=== PATIENT | male | born 1950 | race Caucasian/White ===

== ENCOUNTER → 2016-05-14 | Outpatient (CLI) | payer BC ==
[~2016-05-14] MED LIST: AMLO5TAB4 PO; ATRV10T PO; BONE HEALTH; DIGESTIVE ENZYME; Probiotic; SODI325T PO; [UNRECOGNIZED DRUG - REMARK]
--- OUTSIDE RECORDS SUMMARY | 2016-05-14 16:16 | XMS REPORT | Continuity of Care Document ---
Author Author [facility] Organization [facility] Address Unknown Phone Unavailable Allergies Active Description Code Type Severity Reaction Onset Reported/Identified Relationship to Patient Clinical Status Yes Penicillins [id number] Drug Allergy Unknown N/A 02/20/2013 Medications Problems Date Dx Coded Attending Type Code Diagnosis Diagnosed By 10/05/2014 Shailesh FULLER MD Ot 591 01/18/2015 MAKENNA COLLAZO, RACHEL S Ot D63.1 01/18/2015 MAKENNA COLLAZO, MED S Ot N18.4 01/21/2015 MAKENNA COLLAZO, MED S Ot D63.1 01/21/2015 MAKENNA COLLAZO, MED S Ot N18.4 01/21/2015 MAKENNA COLLAZO, MED S Ot D63.1 01/21/2015 MAKENNA COLLAZO, MED S Ot N18.4 01/23/2015 MAKENNA COLLAZO, MED S Ot D63.1 01/23/2015 MAKENNA COLLAZO, RACHEL S Ot N18.4 01/25/2015 MAKENNA COLLAZO, AHMED S Ot D63.1 01/25/2015 MAKENNA COLLAZO, AHMED S Ot N18.4 02/06/2015 MAKENNA COLLAZO, AHMED S Ot D63.1 02/06/2015 MAKENNA COLLAZO, AMRIK S Ot N18.4 03/07/2015 MAKENNA COLLAZO, AHRACHEL S Ot D63.1 03/07/2015 MAKENNA COLLAZO, AMRIK S Ot N18.4 04/16/2015 MAKENNA COLLAZO, AHMED S Ot D63.1 04/16/2015 MAKENNA COLLAZO, AHRACHEL S Ot N18.4 Procedures Results Encounters ACCT No. Visit Date/Time Discharge Status Pt. Type Provider Facility Loc./Unit Complaint [id number] 01/25/2015 15:28:00 2015 00:01:00 DIS Outpatient MAKENNA COLLAZO, AMRIK Hauser [facility] [id number] 09/17/2014 11:43:00 2014 23:59:59 CLS Outpatient Shailesh FULLER MD [facility] [id number] 02/20/2013 08:21:00 2012 13:35:00 DIS Outpatient [id number] 04/17/2015 00:11:00 PEN Preadmit MAKENNA COLLAZO, AMRIK Hauser [facility]
--- NOTE | 2016-05-14 16:49 | Diagnostic Imaging Report ---
Procedure: US carotid duplex, bilateral. Technique: Multiple real-time grayscale images were obtained over the carotid arteries in various projections, bilaterally. Additional duplex Doppler and color Doppler images were also obtained. Indication: Hypertension, carotid stenosis. Comparison: None. Discussion: Sonographic evaluation of the common and internal carotid arteries and bilateral vertebral arteries was performed with a linear transducer. Images were assessed for grayscale appearance, spectral and color Doppler blood flow. No significant atherosclerotic plaque identified within either carotid bifurcation. Normal flow velocities are present within the bilateral internal and external carotid arteries. Normal antegrade flow within the bilateral vertebral arteries. Normal ICA/CCA ratios measuring 1.2 on the right and 0.7 on the left. Impression: The bilateral carotid bifurcations are widely patent. Dictated by: Dictated on workstation # [id number]
== END ==
LOC: RAD 16:12
PROVIDERS: ATTEND Family Medicine
DX: I12.9 Hypertensive chronic kidney disease with stage 1 through stage 4 chronic kidney disease, or unspecified chronic kidney disease (principal); N18.4 Chronic kidney disease, stage 4 (severe)
CPT/HCPCS: 93880

== ENCOUNTER → 2016-05-15 | Outpatient (CLI) | payer BC ==
--- OUTSIDE RECORDS SUMMARY | 2016-05-15 18:19 | XMS REPORT | Continuity of Care Document ---
Author Author [facility] Organization [facility] Address Unknown Phone Unavailable Allergies Active Description Code Type Severity Reaction Onset Reported/Identified Relationship to Patient Clinical Status Yes Penicillins [id number] Drug Allergy Unknown N/A 02/20/2013 Medications Problems [...] AHMED S Ot N18.4 02/06/2015 MAKENNA COLLAZO, MED S Ot D63.1 02/06/2015 MAKENNA COLLAZO, AMRIK S Ot N18.4 03/07/2015 MAKENNA COLLAZO, AHRACHEL S Ot D63.1 03/07/2015 MAKENNA COLLAZO, AMRIK S Ot N18.4 04/16/2015 MAKENNA COLLAZO, AHMED S Ot D63.1 04/16/2015 MAKENNA COLLAZO, AHRACHEL S Ot N18.4 Procedures Results Encounters ACCT No. Visit Date/Time Discharge Status Pt. Type Provider Facility Loc./Unit Complaint [id number] 01/25/2015 15:28:00 2015 00:01:00 DIS Outpatient MAKENNA COLLAZO, AMRIK Hauser [facility] [id number] 09/17/2014 11:43:00 2014 23:59:59 CLS Outpatient Shailesh FULLER MD [facility] [id number] 02/20/2013 08:21:00 2012 13:35:00 DIS Outpatient [id number] 04/17/2015 00:11:00 PEN Preadmit MAKENNA COLLAZO, AMRIK Hauser [facility]
== END ==
LOC: RAD 18:15
PROVIDERS: ATTEND Family Medicine
DX: I12.9 Hypertensive chronic kidney disease with stage 1 through stage 4 chronic kidney disease, or unspecified chronic kidney disease (principal); N18.4 Chronic kidney disease, stage 4 (severe)

== ENCOUNTER 2016-05-16 01:34 | Observation (INO) | payer BC ==
[~2016-05-16] VITALS: Ht 177.8 cm; Wt 80.3 kg
[2016-05-16] VITALS (7 sets, daily range): BP systolic 127–146; BP diastolic 75–88
[~2016-05-16 01:34] MED LIST changes: -AMLO5TAB4 PO; -SODI325T PO
--- OUTSIDE RECORDS SUMMARY | 2016-05-16 01:40 | XMS REPORT | Continuity of Care Document ---
Author Author [facility] Organization [facility] Address Unknown Phone Unavailable Allergies Active Description Code Type Severity Reaction Onset Reported/Identified Relationship to Patient Clinical Status Yes Penicillins [id number] Drug Allergy Unknown N/A 02/20/2013 Medications Problems Date Dx Coded Attending Type Code Diagnosis Diagnosed By 10/05/2014 Shailesh FULLER MD Ot 591 01/18/2015 MAKENNA COLLAZO, RACHEL S Ot D63.1 01/18/2015 MAKENNA COLLAZO, MED S Ot N18.4 01/21/2015 MAKENNA COLLAZO, MED S Ot D63.1 01/21/2015 MAKENNA COLLAZO, MED S Ot N18.4 01/21/2015 MAKENNA COLLAZO, MED S Ot D63.1 01/21/2015 MAKNENA COLLAZO, MED S Ot N18.4 01/23/2015 MAKENNA COLLAZO, MED S Ot D63.1 01/23/2015 MAKENNA COLLAZO, RACHEL S Ot N18.4 01/25/2015 MAKENNA COLLAZO, AHMED S Ot D63.1 01/25/2015 MAKENNA COLLAZO, AHMED S Ot N18.4 02/06/2015 MAKENNA COLLAZO, AHMED S Ot D63.1 02/06/2015 MAKENNA COLLAZO, RACHEL S Ot N18.4 03/07/2015 MAKENNA COLLAZO, AHRACHEL S Ot D63.1 03/07/2015 MAKENNA COLLAZO, AMRIK S Ot N18.4 04/16/2015 MAKENNA COLLAZO, AHMED S Ot D63.1 04/16/2015 MAKENNA COLLAZO, AHRACHEL S Ot N18.4 Procedures Results Encounters ACCT No. Visit Date/Time Discharge Status Pt. Type Provider Facility Loc./Unit Complaint [id number] 01/25/2015 15:28:00 2015 00:01:00 DIS Outpatient MAKENNA COLLAZO, AMRIK Hauser [facility] [id number] 09/17/2014 11:43:00 2014 23:59:59 CLS Outpatient Shailesh FULLER MD [facility] [id number] 02/20/2013 08:21:00 2012 13:35:00 DIS Outpatient [id number] 04/17/2015 00:11:00 PEN Preadmit MAKENNA COLLAZO, AMRIK Hauser [facility]
[2016-05-16] MEDS ORDERED: ASPIRIN 81 MG CHEW (CHILDREN'S ASA) PO ONE (02:00)
[2016-05-16 02:03] LABS: BASOPHILS # (AUTO) 0.1 10^3/uL (0.0-0.1); BASOPHILS % (AUTO) 1 % (0-10); EOSINOPHILS # (AUTO) 0.2 10^3/uL (0.0-0.3); EOSINOPHILS % (AUTO) 3 % (0-10); LYMPHOCYTES # (AUTO) 1.8 X 10^3 (1.0-4.0); LYMPHOCYTES % (AUTO) 25 % (12-44); MEAN CORPUSCULAR HEMOGLOBIN 31 PG (25-34); MEAN CORPUSCULAR HGB CONC 35 G/DL (32-36); MEAN CORPUSCULAR VOLUME 89 FL (80-99); MEAN PLATELET VOLUME 11.2 FL (7.4-10.4); MONOCYTES # (AUTO) 0.7 X 10^3 (0.0-1.0); MONOCYTES % (AUTO) 10 % (0-12); NEUTROPHILS # (AUTO) 4.6 X 10^3 (1.8-7.8); NEUTROPHILS % (AUTO) 62 % (42-75); PLATELET COUNT 214 10^3/uL (130-400); RED BLOOD COUNT 4.78 10^6/uL (4.35-5.85); RED CELL DISTRIBUTION WIDTH 12.4 % (10.0-14.5); WHITE BLOOD COUNT 7.4 10^3/uL (4.3-11.0)
[2016-05-16 02:06] LABS: INR 0.9 (0.8-1.4); PROTHROMBIN TIME PATIENT 12.2 SEC (12.2-14.7)
--- NOTE | 2016-05-16 02:10 | ED Chest Pain ---
General Chief Complaint: Chest Pain Stated Complaint: CP Nursing Triage Note: PT REPORTS L ARM TINGLING SINCE ABOUT 1230 THIS AM THAT WOKE HIM FROM HIS SLEEP. HE REPORTS THAT HE BECAME ANXIOUS AND HAD DIAPHORESIS. HE DENIES ANY N/V. Nursing Sepsis Screen: No Definite Risk Source: patient Exam Limitations: no limitations History of Present Illness Time seen by provider: 01:39 Initial Comments Here with complaint of left-sided chest wall/shoulder pain and left arm tingling. This woke him up at about 1230. This was associated with sweating and not feeling well. He is concerned about heart attack. Does have history of hypertension and chronic kidney disease. Denies nausea or vomiting. Timing/Duration: 1 hour Severity/Quality: moderate Location: shoulder Radiation: arms Activities at Onset: rest Prior CP/Workup: cardiac cath Modifying Factors: improves with rest ASA po FILM TESTS CHECKER: No NTG SL FILM TESTS CHECKER: No Associated Symptoms: No abdominal pain, No back pain, diaphoresis nausea/ vomitingNo shortness of breath, weakness Allergies and Home Medications Allergies Coded Allergies: Penicillins (Verified Adverse Reaction, Unknown, 02/20/13) Home Medications (Reported) (Reported) (Reported) (Reported) Atorvastatin Calcium 10 Mg Tablet 60Days 1 EACH PO DAILY Prescribed by: GRACE SWAN on 02/20/13 1052 Review of Systems Constitutional: see HPINo chills, No fever EENTM: No Symptoms Reported Respiratory: No Symptoms Reported Cardiovascular: See HPI Chest PainDenies Irregular Heart Rate Gastrointestinal: See HPI NauseaDenies Vomiting Genitourinary: No Symptoms Reported Musculoskeletal: see HPI joint pain muscle pain Skin: no symptoms reported Psychiatric/Neurological: No Symptoms Reported All Other Systems Reviewed Negative Unless Noted: Yes Past Yvvczmy-Dnljrs-Bzztgl Hx Patient Social History Alcohol Use: Denies Use Recreational Drug Use: No Smoking Status: Never a Smoker 2nd Hand Smoke Exposure: No Recent Foreign Travel: No Contact w/Someone Who Travel: No Recent Infectious Disease Expo: No Recent Hopitalizations: No Immunizations Up To Date Date of Influenza Vaccine: Jan 09, 2015 Surgeries HX Surgeries: Yes (HEART CATH) Surgeries: Tonsillectomy, Transurethral Resection Respiratory Hx Respiratory Disorders: No Cardiovascular Hx Cardiac Disorders: Yes Cardiac Disorders: Hypertension Neurological Hx Neurological Disorders: No Reproductive System Hx Reproductive Disorders: No Genitourinary Hx Genitourinary Disorders: Yes Genitourinary Disorders: Benign Prostatic Hyperpl, Renal Failure Gastrointestinal Hx Gastrointestinal Disorders: No Musculoskeletal Hx Musculoskeletal Disorders: No Endocrine Hx Endocrine Disorders: No HEENT HX ENT Disorders: No Cancer Hx Cancer: No Psychosocial Hx Psychiatric Problems: No Integumentary HX Skin/Integumentary Disorder: No Blood Transfusions Hx Blood Disorders: No Reviewed Nursing Assessment Reviewed/Agree w Nursing PMH: Yes Family Medical History Significant Family History: No Pertinent Family Hx Physical Exam Vital Signs Vital Sign - Last 12Hours Capillary Refill : Less Than 3 Seconds General Appearance: No Apparent Distress WD/WN HEENT: PERRL/EOMI Pharynx Normal Neck: Non Tender Supple Respiratory: Lungs Clear Normal Breath Sounds Cardiovascular: Regular Rate, Rhythm No Murmur Gastrointestinal: Non Tender Soft Extremity: Normal Capillary Refill Normal Inspection Normal Range of Motion Non Tender No Calf Tenderness Neurologic/Psychiatric: Alert Oriented x3 Skin: Normal Color Warm/Dry Progress/Results/Core Measures Results/Orders Lab Results Laboratory Tests Test 05/16/16 01:38 Range/Units Activated Partial Thromboplast Time 28 24-35 SEC Alanine Aminotransferase (ALT/SGPT) 35 0-55 U/L Albumin 4.6 H 3.2-4.5 G/DL Alkaline Phosphatase 86 40-136 U/L Anion Gap 15 H 5-14 MMOL/L Aspartate Amino Transf (AST/SGOT) 26 5-34 U/L BUN/Creatinine Ratio 13 Basophils # (Auto) 0.1 0.0-0.1 10^3/uL Basophils (%) (Auto) 1 0-10 % Blood Urea Nitrogen 37 H 7-18 MG/DL Calcium Level 9.5 8.5-10.1 MG/DL Carbon Dioxide Level 17 L 21-32 MMOL/L Chloride Level 106 98-107 MMOL/L Creatinine 2.75 H 0.60-1.30 MG/DL D-Dimer 0.36 0.00-0.49 UG/ML Eosinophils # (Auto) 0.2 0.0-0.3 10^3/uL Eosinophils (%) (Auto) 3 0-10 % Estimat Glomerular Filtration Rate 23 Glucose Level 103 70-105 MG/DL Hematocrit 43 40-54 % Hemoglobin 15.0 13.3-17.7 G/DL INR Comment 0.9 0.8-1.4 Lymphocytes # (Auto) 1.8 1.0-4.0 X 10^3 Lymphocytes (%) (Auto) 25 12-44 % Magnesium Level 2.6 H 1.8-2.4 MG/DL Mean Corpuscular Hemoglobin 31 25-34 PG Mean Corpuscular Hemoglobin Concent 35 32-36 G/DL Mean Corpuscular Volume 89 80-99 FL Mean Platelet Volume 11.2 H 7.4-10.4 FL Monocytes # (Auto) 0.7 0.0-1.0 X 10^3 Monocytes (%) (Auto) 10 0-12 % Myoglobin 115.8 H 10.0-92.0 NG/ML Neutrophils # (Auto) 4.6 1.8-7.8 X 10^3 Neutrophils (%) (Auto) 62 42-75 % Platelet Count 214 130-400 10^3/uL Potassium Level 4.0 3.6-5.0 MMOL/L Prothrombin Time 12.2 12.2-14.7 SEC Red Blood Count 4.78 4.35-5.85 10^6/uL Red Cell Distribution Width 12.4 10.0-14.5 % Sodium Level 138 135-145 MMOL/L Total Bilirubin 0.5 0.1-1.0 MG/DL Total Protein 7.3 6.4-8.2 G/DL Troponin I < 0.30 <0.30 NG/ML White Blood Count 7.4 4.3-11.0 10^3/uL My Orders Orders-EDGARD DE SOUZA MD Cbc With Automated Diff (05/16/16 01:51) Magnesium (05/16/16 01:51) Chest 1 View, Ap/Pa Only (05/16/16 01:51) Ekg Tracing (05/16/16 01:51) Cardiac Profile 1 (05/16/16 01:51) Comprehensive Metabolic Panel (05/16/16 01:51) Myoglobin Serum (05/16/16 01:51) Protime With Inr (05/16/16 01:51) Partial Thromboplastin Time (05/16/16 01:51) O2 (05/16/16 01:51) Monitor-Rhythm Ecg Trace Only (05/16/16 01:51) Lipid Panel (05/17/16 06:00) Aspirin Chewable Tablet (Baby Aspirin Ch (05/16/16 02:00) Saline Lock/Iv-Start (05/16/16 01:51) Fibrin Degradation Products (05/16/16 01:51) Medications Given in ED Current Medications Medications Dose Ordered Sig/Caroline Route Start Time Stop Time Status Last Admin Dose Admin Aspirin 324 mg ONCE ONCE PO 05/16/16 02:00 05/16/16 02:01 DC 05/16/16 02:00 324 MG Vital Signs/I&O Vital Sign - Last 12Hours 05/16/16 05/16/16 01:35 01:35 Temp 97.7 Pulse 76 Resp 14 B/P 127/87 Pulse Ox 99 O2 Delivery Room Air Room Air Blood Pressure Mean: 100 Progress Note : Progress Note Seen and evaluated. IV, labs, EKG and chest x-ray ordered. ASA 324 mg by mouth ordered. Monitor patient. 0239: Discussed the case with Dr. Evans related to elevated myoglobin. Patient has negative heart catheter in 2012 but has kidney failure. Patient has mild elevation in myoglobin which makes it difficult to discharge patient home without further evaluation. Dr. Evans agrees and accepts patient for consultation. Discussed case with Dr. Bridges who agrees with admission and accepts patient in observation status. Admit to cardiac step down. Patient and family agree with plan. Patient currently pain- free. ECG Initial ECG Impression Date: May 16, 2016 Initial ECG Impression Time: 01:44 Initial ECG Rate: 67 Initial ECG Rhythm: Normal Sinus Comment Sinus rhythm with left ventricular hypertrophy. Normal axis. No evidence of ST elevation OK. Comparison well but increasing LVH from previous of 02/20/13. No evidence of ST elevation OK. Interpreted by me. Departure Communication Time/Spoke to Admitting Phy: 03:05 Time/Spoke to Consulting Physi: 02:39 Impression Impression: Primary Impression: Chest pain Qualified Code: R07.1 - Chest pain on breathing Disposition: ADMITTED INPATIENT Condition: Stable Decision to Admit Reason: Admit from ER (General) Decision to Admit/Date: May 16, 2016 Time/Decision to Admit Time: 03:05 Departure-Patient Inst. Referrals: RENETTA TERESA MD (PCP/Family) Primary Care Physician EDGARD DE SOUZA MD May 16, 2016 02:10
[2016-05-16 02:20] LABS: ALANINE AMINOTRANSFERASE 35 U/L (0-55); ALBUMIN 4.6 G/DL (3.2-4.5); ANION GAP 15 MMOL/L (5-14); ASPARTATE AMINO TRANSFERASE 26 U/L (5-34); BILIRUBIN,TOTAL 0.5 MG/DL (0.1-1.0); BLOOD UREA NITROGEN 37 MG/DL (7-18); BUN/CREATININE RATIO 13; CALCIUM 9.5 MG/DL (8.5-10.1); CARBON DIOXIDE 17 MMOL/L (21-32); CHLORIDE 106 MMOL/L (98-107); CREATININE SERUM 2.75 MG/DL (0.60-1.30); GFR ESTIMATED 23; GLUCOSE 103 MG/DL (70-105); MAGNESIUM 2.6 MG/DL (1.8-2.4); SODIUM 138 MMOL/L (135-145); TOTAL PROTEIN 7.3 G/DL (6.4-8.2)
[2016-05-16 02:27] LABS: MYOGLOBIN SERUM 115.8 NG/ML (10.0-92.0)
[2016-05-16] MEDS ORDERED: NS IV 1000 ML 1,000 ML ONE (04:29)
[2016-05-16] MEDS ORDERED: AMLO5TAB4 PO (06:28)
[2016-05-16] MEDS ORDERED: SODI325T PO (06:28)
[2016-05-16] MEDS ORDERED: FLU TRIvalent (5 YOA+) 2016-17 (AFLURIA) 0.5 ML IM ONE (07:15)
--- NOTE | 2016-05-16 07:34 | Diagnostic Imaging Report ---
INDICATION: Chest pain EXAMINATION: Chest 05/16/2016 Comparison made to 02/20/2013 FINDINGS: Heart is enlarged. The pulmonary vasculature is unremarkable. Lungs and pleural spaces clear. IMPRESSION: 1. Mild cardiomegaly, otherwise negative chest. Dictated by: Dictated on workstation # [id number]
[2016-05-16 08:17] LABS: MYOGLOBIN SERUM 487.7 NG/ML (10.0-92.0)
--- NOTE | 2016-05-16 10:49 | Short Stay Summary-Hospitalist ---
HPI History of Present Illness: HPI/Chief Complaint 65yoCM with PMH of HTN and CKD who presented to the ED with CC of left hand numbness and tingling. This has been present for a while and is in currently undergoing a workup by his PCP for this. He reports this has happened many times and improves when he has friends pray for him but was unable to get a hold of his friends last night and became very anxious over the symptoms prompting him to seek evaluation in the ED. He was found to have an elevated myoglobin and after discussion with Dr. Evans was admitted for observation. He denies any chest pain, SOB, HOUSER, ENMANUEL, nausea. His only symptom is the mild persistent tingling in his 4th and 5th digit of his left hand. Source: patient Exam Limitations: no limitations Date Seen 05/16/16 Attending Physician Josy Bridges Katelyn MD PCP Yudith Vásquez MD Referring Physician Date of Admission May 16, 2016 at 03:10 Home Medications & Allergies Home Medications Reviewed patient Home Medication Reconciliation Form Allergies Coded Allergies: Penicillins (Verified Adverse Reaction, Unknown, 02/20/13) Past Iryookq-Zeesyy-Pdxjou Hx Patient Social History Alcohol Use: Denies Use Recreational Drug Use: No Smoking Status: Never a Smoker 2nd Hand Smoke Exposure: No Physical Abuse Screen: No Sexual Abuse: No Recent Foreign Travel: No Contact w/other who traveled: No Recent Hopitalizations: No Recent Infectious Disease Expo: No Immunizations Up To Date Date of Influenza Vaccine: Jan 09, 2015 Seasonal Allergies Seasonal Allergies: No Surgeries HX Surgeries: Yes (HEART CATH) Surgeries: Tonsillectomy, Transurethral Resection Respiratory Hx Respiratory Disorders: No Cardiovascular Hx Cardiovascular Disorders: Yes Cardiac Disorders: Hypertension Neurological Hx Neurological Disorders: No Reproductive System Hx Reproductive Disorders: No Genitourinary Hx Genitourinary Disorders: Yes Genitourinary Disorders: Benign Prostatic Hyperpl, Renal Failure Gastrointestinal Hx Gastrointestinal Disorders: No Musculoskeletal Hx Musculoskeletal Disorders: No Endocrine Hx Endocrine Disorders: No HEENT HX ENT Disorders: No Cancer Hx Cancer: No Psychosocial Hx Psychiatric Problems: No Integumentary HX Skin/Integumentary Disorder: No Blood Transfusions Hx Blood Disorders: No Reviewed Nursing Assessment Reviewed/Agree w Nursing PMH: Yes Family Medical History Significant Family History: No Pertinent Family Hx Family Hx: Cardiovascular disease 19 MOTHER FH: CVA (cerebrovascular accident) 19 FATHER FH: cancer 19 MOTHER Hypertension 19 FATHER Prostate cancer 19 MOTHER Review of Systems Constitutional: no symptoms reported EENTM: no symptoms reported Respiratory: no symptoms reported Cardiovascular: no symptoms reported Gastrointestinal: no symptoms reported Genitourinary: no symptoms reported Musculoskeletal: no symptoms reported Skin: no symptoms reported Psychiatric/Neurological: Numbness (left hand) Paresthesia (left hand) Physical Exam Physical Exam Vital Signs Vital Sign - Last 12Hours Capillary Refill : Less Than 3 Seconds General Appearance: No Apparent Distress WD/WN Eyes: Bilateral Eye EOMI, Bilateral Eye PERRL HEENT: PERRL/EOMI Other (HEAD: NC/AT) Neck: Normal Inspection Respiratory: Chest Non Tender Lungs Clear Normal Breath Sounds No Accessory Muscle Use No Respiratory Distress Cardiovascular: Regular Rate, Rhythm No Edema No Murmur Normal Peripheral Pulses Gastrointestinal: Normal Bowel Sounds No Organomegaly Non Tender Soft Rectal: Deferred Extremity: Normal Capillary Refill Normal Inspection Non Tender No Calf Tenderness Neurologic/Psychiatric: Alert Oriented x3 No Motor/Sensory Deficits Normal Mood/Affect Results Results/Procedures Lab Laboratory Tests 05/16/16 01:38 Short Stay Diagnosis Discharge Diagnosis-Short Stay Admission Diagnosis Elevated myoglobin, CKD, HTN Final Discharge Diagnosis Elevated myoglobin, CKD, HTN Conclusion Plan 65yoCM with PMH of HTN and CKD who presented with left arm paresthesias and was found to have an elevated myoglobin admitted for ACS rule out. He was observed overnight and did well, paresthesias improving. Cardiology consulted, appreciate recs. Once evaluated by cardiology, will plan to DC home if no further inpatient workup planned. Of note has appt for outpatient MRI today to evaluate for possible TIAs that are causing paresthesias. Diagnosis/Problems Diagnosis/Problems (1) Elevated myoglobin level Status: Acute (2) Essential (primary) hypertension Status: Chronic (3) CKD (chronic kidney disease) stage 4, GFR 15-29 ml/min Status: Chronic (4) Left hand paresthesia Status: Chronic Clinical Quality Measures AMI/AHF: ASA po Prior to arrival: No DVT/VTE Risk/Contraindication: Risk Factor Score Per Nursin RFS Level Per Nursing on Admit: 2=Moderate COLETTE CASTANEDA MD May 16, 2016 10:49
--- NOTE | 2016-05-16 11:00 | Consultation-Cardiology ---
HPI-Cardiology Cardiology Consultation: Date of Consultation 05/16/16 Date of Admission Attending Physician Josy Bridges DO Admitting Physician Yudith Vásquez MD Consulting Physician Braden EVANS MD HPI: Chief Complaint: left shoulder discomfort, left arm discomfort, dizziness. this is a 65-year-old gentleman with new onset hypertension and premature family history of coronary artery disease. Last Wednesday he had symptoms of dizziness. Yesterday he was admitted because of left shoulder discomfort as well as left upper extremity discomfort and numbness. He denies any significant chest pain or shortness of breath. He's had this episodes in the past for a brief period of time. However yesterday these episodes were prolonged therefore he decided to come to the emergency department. Review of Systems-Cardiology Review of Systems Constitutional: No As described under HPI, No no symptoms reported, No chills, No fever, No lightheadedness, No malaise, No tiredness, No weight loss, No weight gain, No other Eyes: No As described under HPI, No no symptoms reported, No blindness, No blurred vision, No contact lenses, No drainage, No decreased acuity, No foreign body sensation, No glasses, No inflammation, No pain, No photophobia, No previous injury, No shadows, No tunnel vision, No other, No vision change Ears/Nose/Throat: No As described under HPI, No no symptoms reported, No chronic hearing loss, No epistaxis, No ear discharge, No ear pain, No loose teeth, No mouth pain, No mouth swelling, No nasal drainage, No nose pain, No recent hearing loss, No throat pain, No throat swelling, No ulcerations, No other Respiratory: No no symptoms reported, No As described under HPI, No cough, No orthopnea, No shortness of breath, No SOB with excertion, No SOB at rest, No stridor, No wheezing, No other Cardiovascular: No no symptoms reported, No As described under HPI, No chest pain, No edema, No irregular heart rate, No lightheadedness, No palpitations, No syncope, No other Gastrointestinal: No no symptoms reported, No As described under HPI, No abdomen distended, No abdominal pain, No blood streaked bowels, No constipation , No diarrhea, No difficulty swallowing, No nausea, No poor appetite, No poor fluid intake, No rectal bleeding, No vomiting, No other, No nausea/vomiting/ diarrhea, No stool coloration changes Genitourinary: No no symptoms reported, No As described under HPI, No burning, No dysuria, No discharge, No frequency, No flank pain, No hematuria, No incontinence, No pain, No urgency, No other, No urine frequency changes, No urine coloration changes Musculoskeletal: As describe under HPI joint pain Skin: No no symptoms reported, No As described under HPI, No change in color, No change in hair/nails, No dryness, No lesions, No lumps, No rash, No other, No skin related problems, No ulcerations, No rash on exposed areas, No ulcerations on exposed areas Psychiatric/Neurological: numbness Hematologic: No no symptoms reported, No As described under HPI, No anemia, No blood clots, No easy bleeding, No easy bruising, No swollen glands, No other, No bleeding abnormalities All Other Systems Reviewed Negative Unless Noted: Yes VET-Stleea-Tfsiyk Hx Patient Social History Alcohol Use: Denies Use Recreational Drug Use: No Smoking Status: Never a Smoker 2nd Hand Smoke Exposure: No Recent Foreign Travel: No Recent Infectious Disease Expo: No Hospitalization with Isolation: Denies Physical Abuse Screen: No Sexual Abuse: No Immunizations Up To Date Date of Influenza Vaccine: Jan 09, 2015 Past Medical History PMH As described under Assessment. Family Medical History Family History: Cardiovascular disease 19 MOTHER FH: CVA (cerebrovascular accident) 19 FATHER FH: cancer 19 MOTHER Hypertension 19 FATHER Prostate cancer 19 MOTHER Allergies and Home Medications Allergies Coded Allergies: Penicillins (Verified Adverse Reaction, Unknown, 02/20/13) Home Medications Amlodipine Besylate 5 Mg Tablet 5 MG PO DAILY (Reported) Sodium Bicarbonate 325 Mg Tablet 325 MG PO BID (Reported) Physical Exam-Cardiology Physical Exam Vital Signs/I&O Vital Sign - Last 12Hours 05/16/16 05/16/16 05/16/16 05/16/16 01:35 01:35 04:06 04:30 Temp 97.7 97.7 96.1 Pulse 76 62 66 Resp 14 14 18 B/P 127/87 127/82 Pulse Ox 99 95 98 O2 Delivery Room Air Room Air Room Air 05/16/16 05/16/16 05/16/16 05/16/16 04:50 05:34 06:32 07:00 Temp 97.1 Pulse 64 75 62 65 Resp 18 18 18 B/P 133/81 146/88 131/75 Pulse Ox 100 98 97 O2 Delivery Room Air Room Air Room Air 05/16/16 08:00 Temp 98.0 Pulse 66 Resp 20 B/P 141/82 Pulse Ox 96 O2 Delivery Room Air Capillary Refill : Less Than 3 Seconds Data Review Labs Laboratory Tests 05/16/16 01:38: Activated Partial Thromboplast Time 28, Alanine Aminotransferase (ALT/SGPT) 35, Albumin 4.6H, Alkaline Phosphatase 86, Anion Gap 15H, Aspartate Amino Transf ( AST/SGOT) 26, BUN/Creatinine Ratio 13, Basophils # (Auto) 0.1, Basophils (%) ( Auto) 1, Blood Urea Nitrogen 37H, Calcium Level 9.5, Carbon Dioxide Level 17L, Chloride Level 106, Creatinine 2.75H, D-Dimer 0.36, Eosinophils # (Auto) 0.2, Eosinophils (%) (Auto) 3, Estimat Glomerular Filtration Rate 23, Glucose Level 103, Hematocrit 43, Hemoglobin 15.0, INR Comment 0.9, Lymphocytes # (Auto) 1.8, Lymphocytes (%) (Auto) 25, Magnesium Level 2.6H, Mean Corpuscular Hemoglobin 31 , Mean Corpuscular Hemoglobin Concent 35, Mean Corpuscular Volume 89, Mean Platelet Volume 11.2H, Monocytes # (Auto) 0.7, Monocytes (%) (Auto) 10, Myoglobin 115.8H, Neutrophils # (Auto) 4.6, Neutrophils (%) (Auto) 62, Platelet Count 214, Potassium Level 4.0, Prothrombin Time 12.2, Red Blood Count 4.78, Red Cell Distribution Width 12.4, Sodium Level 138, Total Bilirubin 0.5, Total Protein 7.3, Troponin I < 0.30, White Blood Count 7.4 05/16/16 07:50: Myoglobin 487.7H, Troponin I < 0.30 ECG Impression ECG Initial ECG Rhythm: Normal Sinus Comment T-wave inversions noted in the anterior precordial leads and the lateral leads. However I reviewed his previous EKG in the chart, which has the same findings. A/P-Cardiology Assessment/Admission Diagnosis left shoulder pain, left upper extremity discomfort, dizziness Plan this is a 65-year-old gentleman with history of hypertension and premature coronary artery disease in the family. He presents with atypical symptoms of left shoulder and upper extremity discomfort. He also complained of some dizziness in the last one week for which he is having an MRI done today. His EKG shows sinus rhythm with T-wave inversions which are unchanged from his previous EKG in the system. Serial troponins are negative. I have spoken at length with the patient and the family. I have educated them that this is not an acute coronary syndrome however obstructive coronary artery disease is still possible. therefore, I recommend an outpatient echocardiogram and pharmacological nuclear stress test early next week. In the meantime he will start low-dose aspirin. If he has recurrent symptoms he will seek immediate medical attention. Severe renal dysfunction noted. Needs to continue follow nephrology. Etiology of chronic kidney disease unclear. Thank you for your consultation. Please call me if you have any questions. Gay Evans MD, FACP, FACC, FSCAI, FHRS, CCDS Interventional Cardiology Cardiac Electrophysiology Vascular Medicine and Endovascular Interventions Clinical Quality Measures AMI/AHF: ASA po Prior to arrival: No DVT/VTE Risk/Contraindication: Risk Factor Score Per Nursin RFS Level Per Nursing on Admit: 2=Moderate Braden EVANS MD May 16, 2016 11:00 am
--- NOTE | 2016-05-16 11:05 | Discharge Instructions ---
Discharge Instructions Discharge Medications New, Converted or Re-Newed RX: Other Patient Instructions Patient Instructions Please follow up with you PCP for further evaluation of your persistent left hand numbness and tingling. Return to The Hospital For: chest pain, shortness of breath, dyspnea on exertion Activity & Diet Discharge Diet: Low Sodium Diet Activity as Tolerated: Yes COLETTE CASTANEDA MD May 16, 2016 11:05
== END 2016-05-16 11:06 | disposition home or self-care (01) ==
LOC: EDUNIT# 01:34 → ER 01:37 → ICU 03:10 → UNDOADMOB 03:10 → ICU 04:20 → UNDODISOB 13:45
PROVIDERS: ADMIT Internal Medicine; ATTEND Internal Medicine
DX: R07.9 Chest pain, unspecified (principal); I12.9 Hypertensive chronic kidney disease with stage 1 through stage 4 chronic kidney disease, or unspecified chronic kidney disease; N18.4 Chronic kidney disease, stage 4 (severe); R89.7 Abnormal histological findings in specimens from other organs, systems and tissues; R20.2 Paresthesia of skin; Z82.49 Family history of ischemic heart disease and other diseases of the circulatory system
CPT/HCPCS: 36415; 71010; 80053; 83735; 83874; 84484; 85025; 85379; 85610; 85730; 93005; 93041; G0378

== ENCOUNTER → 2016-05-16 | Outpatient (CLI) | payer BC ==
--- OUTSIDE RECORDS SUMMARY | 2016-05-16 15:24 | XMS REPORT | Continuity of Care Document ---
Author Author [facility] Organization [facility] Address Unknown Phone Unavailable Allergies Active Description Code Type Severity Reaction Onset Reported/Identified Relationship to Patient Clinical Status Yes Penicillins [id number] Drug Allergy Unknown N/A 02/20/2013 Medications Problems Date Dx Coded Attending Type Code Diagnosis Diagnosed By 10/05/2014 Shailesh FULLER MD Ot 591 01/18/2015 MAKENNA COLLAZO, RACHEL S Ot D63.1 01/18/2015 MAKENNA COLLAZO, MED S Ot N18.4 01/21/2015 MAKENNA COLLAZO, MED S Ot D63.1 01/21/2015 MAKENNA CLOLAZO, MED S Ot N18.4 01/21/2015 MAKENNA COLLAZO, [...] Status Pt. Type Provider Facility Loc./Unit Complaint [id number] 01/25/2015 15:28:00 2015 00:01:00 DIS Outpatient MAKENNA COLLAZO, AMRIK Hauser [facility] [id number] 09/17/2014 11:43:00 2014 23:59:59 CLS Outpatient Shailesh FULLER MD [facility] [id number] 02/20/2013 08:21:00 2012 13:35:00 DIS Outpatient [id number] 04/17/2015 00:11:00 PEN Preadmit MAKENNA COLLAZO, AMRIK Hauser [facility]
--- NOTE | 2016-05-16 17:53 | Diagnostic Imaging Report ---
PROCEDURE: MR imaging of the brain without contrast. TECHNIQUE: Multiplanar, multisequence MR imaging of the brain was performed without contrast. INDICATION: Recently started on new blood pressure medication two days ago. Tingling in the fourth and fifth digits of the left hand for a week. Dizziness and left arm weakness. EXAMINATION: MRI of brain without contrast 05/16/2016. FINDINGS: No definite areas of restricted effusion appreciated with no evidence for acute hemorrhage or infarct appreciated. Multiple areas of rounded hyperintensity on FLAIR imaging throughout the deep white matter and periventricular suspicion visualized. These findings could be due to chronic small vessel ischemic disease. A demyelinating process felt to be less likely but clinical exclusion of such a process is recommended. The midline structures demonstrate normal appearance with no significant atrophy of the midline structures visualized. Minimal atrophy towards the vertex bilaterally, age-appropriate. There is no hydrocephalus. There is no mass, mass effect or midline shift. The sinuses demonstrate mucosal thickening bilaterally with no air-fluid levels identified. Partial opacification of the mastoid air cells, right greater than left is noted, age-indeterminate. IMPRESSION: 1. No evidence for acute intracranial hemorrhage or process. Chronic findings as above with hyperintensities on FLAIR imaging; however, a demyelinating process could cause a similar appearance and clinical exclusion of such a process is recommended. 2. Chronic changes within the visualized sinuses and other incidental findings as discussed above. Dictated by: Dictated on workstation # [id number]
== END ==
LOC: RAD 15:21
PROVIDERS: ATTEND Internal Medicine
DX: I12.9 Hypertensive chronic kidney disease with stage 1 through stage 4 chronic kidney disease, or unspecified chronic kidney disease (principal); N18.4 Chronic kidney disease, stage 4 (severe)
CPT/HCPCS: 70551

== ENCOUNTER → 2016-05-22 | Outpatient (CLI) | payer BC ==
[~2016-05-22] MED LIST changes: +AMLO5TAB4 PO; +CATHETER FLUSH 10 ML SYR IV PRN; +REGADENOSON 0.4 MG/5 ML SYR (LEXISCAN) IV ONE; +SODI325T PO
--- OUTSIDE RECORDS SUMMARY | 2016-05-22 09:38 | XMS REPORT | Continuity of Care Document ---
Author Author [facility] Organization [facility] Address Unknown Phone Unavailable Allergies Active Description Code Type Severity Reaction Onset Reported/Identified Relationship to Patient Clinical Status Yes Penicillins [id number] Drug Allergy Unknown N/A 02/20/2013 Medications Problems Date Dx Coded Attending Type Code Diagnosis Diagnosed By 02/20/2013 OZIEL HORN MD Ot 414.01 CORONARY ATHEROSCLEROSIS OF [place] CORON 02/20/2013 OZIEL HORN MD Ot 786.50 CHEST PAIN NOS 02/20/2013 OZIEL HORN MD Ot V17.3 FAM HX-ISCHEM HEART DIS 10/05/2014 JONNY COLLAZO, Shailesh SEXTON Ot 591 01/18/2015 MAKENNA COLLAZO, RACHEL S Ot D63.1 01/18/2015 MAKENNA COLLAZO, RACHEL S Ot N18.4 01/21/2015 MAKENNA COLLAZO, AMRIK S Ot D63.1 01/21/2015 MAKENNA COLLAZO, AMRIK S Ot N18.4 01/21/2015 MAKENNA COLLAZO, MED S Ot D63.1 01/21/2015 MAKENNA COLLAZO, RACHEL S Ot N18.4 01/23/2015 MAKENNA COLLAZO, MED S Ot D63.1 01/23/2015 MAKENNA COLLAZO, RACHEL S Ot N18.4 01/25/2015 MAKENNA COLLAZO, MED S Ot D63.1 01/25/2015 MAKENNA COLLAZO, AMRIK S Ot N18.4 02/06/2015 MAKENNA COLLAZO, RACHEL S Ot D63.1 02/06/2015 MAKENNA COLLAZO, RACHEL S Ot N18.4 03/07/2015 MAKENNA COLLAZO, MED S Ot D63.1 03/07/2015 MAKENNA COLLAZO, RACHEL S Ot N18.4 04/16/2015 MAKENNA COLLAZO, AMRIK S Ot D63.1 ANEMIA IN CHRONIC KIDNEY DISEASE 04/16/2015 MAKENNA COLLAZO, AMRIK S Ot N18.4 CHRONIC KIDNEY DISEASE, STAGE 4 (SEVERE ) 05/14/2016 JONNY COLLAZO, J DARSHAN Ot 591 HYDRONEPHROSIS 05/14/2016 MAKENNA COLLAZO, AMRIK S Ot D63.1 ANEMIA IN CHRONIC KIDNEY DISEASE 05/14/2016 MAKENNA COLLAZO, AMRIK S Ot N18.4 CHRONIC KIDNEY DISEASE, STAGE 4 (SEVERE ) 05/15/2016 MALICK COLLAZO, RENETTA L Ot I12.9 HYPERTENSIVE CHRONIC KIDNEY DISEASE W ST 05/15/2016 MALICK COLLAZO, RENETTA L Ot N18.4 CHRONIC KIDNEY DISEASE, STAGE 4 (SEVERE) 05/19/2016 MALICK COLLAZO, RENETTA L Ot I12.9 HYPERTENSIVE CHRONIC KIDNEY DISEASE W ST 05/19/2016 MALICK COLLAZO, RENETTA L Ot N18.4 CHRONIC KIDNEY DISEASE, STAGE 4 (SEVERE) 05/19/2016 ISSA GAYLE MD K Ot I12.9 HYPERTENSIVE CHRONIC KIDNEY DISEASE W ST 05/19/2016 ISSA GAYLE MD K Ot N18.4 CHRONIC KIDNEY DISEASE, STAGE 4 (SEVERE) 05/19/2016 ISSA GAYLE MD K Ot I12.9 HYPERTENSIVE CHRONIC KIDNEY DISEASE W ST 05/19/2016 ISSA GAYLE MD K Ot N18.4 CHRONIC KIDNEY DISEASE, STAGE 4 (SEVERE) Procedures Results Test Result Range Complete blood count (CBC) with automated white blood cell (WBC) differential - 05/16/16 01:38 Blood leukocytes automated count (number/volume) 7.4 10*3/ uL 4.3-11.0 Blood erythrocytes automated count (number/volume) 4.78 10*6 /uL 4.35-5.85 Venous blood hemoglobin measurement (mass/volume) 15.0 g/dL 13.3-17.7 Blood hematocrit (volume fraction) 43 % 40-54 Automated erythrocyte mean corpuscular volume 89 [foz_us] 80-99 Automated erythrocyte mean corpuscular hemoglobin (mass per erythrocyte) 31 pg 25-34 Automated erythrocyte mean corpuscular hemoglobin concentration measurement ( mass/volume) 35 g/dL 32-36 Automated erythrocyte distribution width ratio 12.4 % 10.0-14.5 Automated blood platelet count (count/volume) 214 10*3/uL 130-400 Automated blood platelet mean volume measurement 11.2 [foz_ us] 7.4-10.4 Automated blood neutrophils/100 leukocytes 62 % 42-75 Automated blood lymphocytes/100 leukocytes 25 % 12-44 Blood monocytes/100 leukocytes 10 % 0-12 Automated blood eosinophils/100 leukocytes 3 % 0-10 Automated blood basophils/100 leukocytes 1 % 0-10 Blood neutrophils automated count (number/volume) 4.6 10*3 1.8-7.8 Blood lymphocytes automated count (number/volume) 1.8 10*3 1.0-4.0 Blood monocytes automated count (number/volume) 0.7 10*3 0.0-1.0 Automated eosinophil count 0.2 10*3/uL 0.0-0.3 Automated blood basophil count (count/volume) 0.1 10*3/uL 0.0-0.1 PT panel in platelet poor plasma by coagulation assay - 05/16/16 01:38 Prothrombin time (PT) in platelet poor plasma by coagulation assay 12.2 s 12.2-14.7 INR in platelet poor plasma or blood by coagulation assay 0.9 0.8-1.4 Activated partial thromboplastin time (aPTT) in platelet poor plasma bycoagulation assay - 05/16/16 01:38 Activated partial thromboplastin time (aPTT) in platelet poor plasma bycoagulation assay 28 s 24-35 Comprehensive metabolic panel - 05/16/16 01:38 Serum or plasma sodium measurement (moles/volume) 138 mmol/ L 135-145 Serum or plasma potassium measurement (moles/volume) 4.0 mmol/L 3.6-5.0 Serum or plasma chloride measurement (moles/volume) 106 mmol /L 98-107 Carbon dioxide 17 mmol/L 21-32 Serum or plasma anion gap determination (moles/volume) 15 mmol/L 5-14 Serum or plasma urea nitrogen measurement (mass/volume) 37 mg/dL 7-18 Serum or plasma creatinine measurement (mass/volume) 2.75 mg /dL 0.60-1.30 Serum or plasma urea nitrogen/creatinine mass ratio 13 NRG Serum or plasma creatinine measurement with calculation of estimated glomerular filtration rate 23 NRG Serum or plasma glucose measurement (mass/volume) 103 mg/dL 70-105 Serum or plasma calcium measurement (mass/volume) 9.5 mg/dL 8.5-10.1 Serum or plasma total bilirubin measurement (mass/volume) 0.5 mg/dL 0.1-1.0 Serum or plasma alkaline phosphatase measurement (enzymatic activity/volume) 86 U/L 40-136 Serum or plasma aspartate aminotransferase measurement (enzymatic activity/ volume) 26 U/L 5-34 Serum or plasma alanine aminotransferase measurement (enzymatic activity/volume ) 35 U/L 0-55 Serum or plasma protein measurement (mass/volume) 7.3 g/dL 6.4-8.2 Serum or plasma albumin measurement (mass/volume) 4.6 g/dL 3.2-4.5 Magnesium - 05/16/16 01:38 Magnesium 2.6 mg/dL 1.8-2.4 Serum or plasma troponin i.cardiac measurement (mass/volume) - 05/16/16 01:38 Serum or plasma troponin i.cardiac measurement (mass/volume) < ng/mL <0.30 Myoglobin, serum - 05/16/16 01:38 Myoglobin, serum 115.8 ng/mL 10.0-92.0 Fibrin D-dimer FEU measurement in platelet poor plasma (mass/volume) - 01:38 Fibrin D-dimer FEU measurement in platelet poor plasma (mass/volume) 0.36 ug/mL 0.00-0.49 Serum or plasma troponin i.cardiac measurement (mass/volume) - 05/16/16 07:50 Serum or plasma troponin i.cardiac measurement (mass/volume) < ng/mL <0.30 Myoglobin, serum - 05/16/16 07:50 Myoglobin, serum 487.7 ng/mL 10.0-92.0 Encounters ACCT No. Visit Date/Time Discharge Status Pt. Type Provider Facility Loc./Unit Complaint [id number] 05/16/2016 03:10:00 2016 13:45:00 DIS Inpatient KESHAV RENO DO [facility] ICU CHEST PAIN [id number] 01/25/2015 15:28:00 2015 00:01:00 DIS Outpatient MAKENNA COLLAZO, AMRIK Hauser [facility] SDC IRON DEFICIENCY ANEMIA [id number] 09/17/2014 11:43:00 2014 23:59:59 CLS Outpatient JONNY COLLAZO, Shailesh SEXTON [facility] RAD HYDRONEPHROSIS [id number] 02/20/2013 08:21:00 2012 13:35:00 DIS Outpatient JUSTINA COLLAZO, OZIEL Cash [facility] CATH CHEST PAIN [id number] 05/16/2016 15:21:00 ACT Outpatient NALINI COLLAZO, ISSA Jennings [facility] RAD SUSPECTED TIA, HTN [id number] 05/15/2016 18:15:00 ACT Outpatient RENETTA TERESA MD [facility] RAD SUSPECTED TIA, HTN, CKD STAGE 4 [id number] 05/14/2016 16:12:00 ACT Outpatient RENETTA TERESA MD [facility] RAD SUSPECTED TIA,HTN,CKD STAGE 4 [id number] 04/17/2015 00:11:00 PEN Preadmit MAKENNA COLLAZO, AMRIK Hauser [facility] IRON DEFICIENCY ANEMIA
[2016-05-22 11:42] VITALS: BP 144/81
[2016-05-22 12:29] VITALS: BP 158/81
[2016-05-22 12:31] VITALS: BP 150/78
--- NOTE | 2016-05-23 20:35 | ECHOCARDIOGRAPHY REPORT ---
PROCEDURE PHYSICIAN: TRICIA EVANS DATE OF PROCEDURE: 05/22/2016 TWO DIMENSIONAL ECHOCARDIOGRAM REPORT PRIMARY PHYSICIAN: Dr. Yudith Vásquez OTHER PHYSICIAN: REFERRING PHYSICIAN: ORDERING PHYSICIAN: ATTENDING PHYSICIAN: Dr. Gay Evans FAMILY PHYSICIAN: READING PHYSICIAN: INDICATION FOR THE PROCEDURE: MEASUREMENTS DERIVED VALUES LV DIAMETER (LAX) NORMALS NORMALS Diastolic (3.6-5.2) Eject. Fract. (60%+/-6%) Systolic (2.3-3.9) Diastolic Vol. % Shortening (0.22-0.42) Systolic Vol. Aortic Root IVS THICKNESS Diastolic (0.6-1.1) LVPW THICKNESS Diastolic (0.6-1.1) LA DIAMETER Systolic (2.1-3.7) FINDINGS: 1. Sinus rhythm. 2. Normal left atrium. 3. Normal aortic root. 4. Normal LV function with an EF of 55 to 60%. Mild concentric LVH is present with diastolic intraventricular septal diameter of 1.3 cm. 5. There are no wall motion abnormalities. 6. No pericardial effusion. 7. Mild diastolic dysfunction. 8. IVC was not visualized. VALVULAR STRUCTURE OF THE HEART: There is mild tricuspid regurgitation with RVSP of 14 mmHg. There is mild mitral regurgitation. No significant aortic valve and pulmonic valve pathology is noted. CONCLUSION: 1. LV size and function is normal. 2. EF is 55 to 60%. 3. There is mild concentric LVH. 4. There is mild diastolic dysfunction. 5. There is no significant valvular heart disease. 6. Normal PA pressure. Job ID: [id number] Dictated Date: 05/22/2016 23:57:18 Public Health Nutritionist Date: 05/23/2016 20:31:27 / tamie
--- NOTE | 2016-05-25 11:37 | STRESS TEST ---
PROCEDURE PHYSICIAN: TRICIA EVANS DATE OF PROCEDURE: 05/22/2016 PHARMACOLOGICAL STRESS TEST PRIMARY PHYSICIAN: Dr. Yudith Vásquez ATTENDING PHYSICIAN: Dr. Gay Evans DIAGNOSIS: Chest pain. PROCEDURE DETAILS: The patient was brought to stress lab after informed consent was taken. Lexiscan stress test was performed according to the protocol. 0.4 mg of Lexiscan was given IV. Low grade exercise was performed. Baseline EKG shows sinus rhythm at 80 bpm. Blood pressure was 151/84 mmHg. Maximum heart rate was 130 bpm and blood pressure 168/91 mmHg. The patient did not have any chest pain, arrhythmia or ST-T wave abnormalities during stress testing. 10.91 mCi of Myoview were given for rest images and 31.9 mCi of Myoview were given for stress images. TID was 1.02 and EF of 73%. No perfusion abnormalities on and rest and stress images. Normal wall motion on gaited images. CONCLUSION: 1. Normal pharmacological stress test. 2. No perfusion abnormalities were noted. Job ID: [id number] Dictated Date: 05/25/2016 09:22:13 Outside Solar Sales Consultant Date: 05/25/2016 11:29:46 / hannah
== END ==
LOC: CARD 09:35
PROVIDERS: ATTEND Internal Medicine Interventional Cardiology
DX: R07.89 Other chest pain (principal); R94.31 Abnormal electrocardiogram [ECG] [EKG]; I25.10 Atherosclerotic heart disease of native coronary artery without angina pectoris; R42 Dizziness and giddiness
CPT/HCPCS: 78452; 93017; 93306

== ENCOUNTER 2018-10-24 05:53 | Outpatient (CLI) | payer BC ==
[~2018-10-24] VITALS: Ht 177.8 cm; Wt 74.8 kg
[~2018-10-24 05:53] MED LIST changes: -CATHETER FLUSH 10 ML SYR IV PRN; -REGADENOSON 0.4 MG/5 ML SYR (LEXISCAN) IV ONE
[2018-10-24] MEDS ORDERED: MULT-178 PO (12:16)
[2018-10-24] MEDS ORDERED: ASPI-586 PO (12:16)
[2018-10-24] MEDS ORDERED: C,E,1CAP PO (12:16)
[2018-10-24] MEDS ORDERED: OMG1KC PO (12:16)
== END 2018-10-24 12:50 | disposition home or self-care (01) ==
LOC: PREOP 05:53
PROVIDERS: ATTEND Surgery
DX: Z01.818 Encounter for other preprocedural examination (principal)

== ENCOUNTER 2018-10-26 11:36 | Day surgery (SDC) | payer BC ==
[~2018-10-26] VITALS: Ht 177.8 cm; Wt 74.8 kg
[2018-10-26] VITALS (19 sets, daily range): BP systolic 94–151; BP diastolic 60–89
[~2018-10-26 11:36] MED LIST changes: +ASPI-586 PO; +C,E,1CAP PO; +MULT-178 PO; +OMG1KC PO
[2018-10-26] MEDS ORDERED: NS IV 500 ML 500 ML ONE (11:37)
[2018-10-26] MEDS ORDERED: NS IV 500 ML 500 ML IV PRN (12:02)
[2018-10-26] MEDS ORDERED: MIDAZOLAM 2 MG/2 ML (VERSED) VIAL ONE ×5 (12:14→12:15)
[2018-10-26] MEDS ORDERED: LIDOCAINE JELLY 2% 6 ML SYRINGE ONE (12:14)
[2018-10-26] MEDS ORDERED: fentaNYL INJECTION 100 MCG/2 ML AMP ONE (12:15)
[2018-10-26] MEDS ORDERED: LIDOCAINE JELLY 2% 6 ML SYRINGE MM PRN (12:15)
[2018-10-26] MEDS: fentaNYL INJECTION 100 MCG/2 ML AMP IVP ONE (12:45)
--- NOTE | 2018-10-26 13:44 | Progress Note-Pre Operative ---
Pre-Operative Progress Note H&P Reviewed The H&P was reviewed, patient examined and no changes noted. Date Seen by Provider: Oct 26, 2018 Time Seen by Provider: 12:00 Date H&P Reviewed: Oct 26, 2018 Time H&P Reviewed: 12:00 Pre-Operative Diagnosis: screening colonoscopy MELINA MUKHERJEE MD Oct 26, 2018 13:44
--- NOTE | 2018-10-26 13:44 | Conscious Sedation/ASA ---
Conscious Sedation Pre-Proced Time 12:00 ASA Score 2 For ASA 3 and 4: Consider anesthesia and medical clearance. Also, for patients with a history of failed moderate sedation consider anesthesia. Airway Lungs Heart ASA score ASA 1: a normal healthy patient ASA 2: a patient with a mild systemic disease (mid diabetes, controlled hypertension, obesity ASA 3: a patient with a severe systemic disease that limits activity (angina, COPD, prior Myocardial infarction) ASA 4: a patient with an incapacitating disease that is a constant threat to life (CHF, renal failure) ASA 5: a moribund patient not expected to survive 24 hrs. (ruptured aneurysm) ASA 6: a declared brain- patient whose organs are being harvested. For emergent operations, add the letter E after the classification Mallampati Classification Grade 2 Sedation Plan Analgesia, Amnesia, Plan communicated to team members, Discussed options with patient/fam, Discussed risks with patient/fam The patient is an appropriate candidate to undergo the planned procedure, sedation, and anesthesia. The patient immediately re-assessed prior to indication. MELINA MUKHERJEE MD Oct 26, 2018 13:44
[2018-10-26] MEDS ORDERED: MIDAZOLAM 10 MG/2 ML (VERSED) VIAL IVP PRN (13:45)
--- NOTE | 2018-10-26 13:46 | Progress Note-Post Operative ---
Post-Operative Progess Note Surgeon (s)/Research Contracts Supervisor (s) Surgeon MELINA MUKHERJEE MD Research Contracts Supervisor: none Pre-Operative Diagnosis screening colonoscopy Post-Operative Diagnosis mild chronic stage 1 ext and int hemorrhoids, mild sigmoid diverticulosis. Procedure & Operative Findings Date of Procedure 10/26/18 Procedure Performed/Findings colonoscopy Anesthesia Type cs Estimated Blood Loss Estimated blood loss (mL): minimal Specimens/Packing Specimens Removed none MELINA MUKHERJEE MD Oct 26, 2018 13:46
--- NOTE | 2018-10-26 13:48 | Discharge Inst-Surgical ---
D/C Lap Instructions-YAZ Follow Up 10 years Activity as tolerated High Fiber Diet 25g or more per day Avoid Alcohol, Caffeine, Spicy [place] and Acid foods. Drink 64 fluid oz or more of fluids per day. Symptoms to Report: Fever over 101 degree F, Nausea/Vomiting If any problems/questions: Contact your physician or go to Emergency Room MELINA MUKHERJEE MD Oct 26, 2018 13:48
[2018-10-26] MEDS ORDERED: MIDAZOLAM 2 MG/2 ML (VERSED) VIAL IVP ONE (14:00)
[2018-10-26] MEDS ORDERED: ACETAMINOPHEN 325 MG TABLET PO PRN (14:00)
[2018-10-26] MEDS ORDERED: fentaNYL INJECTION 100 MCG/2 ML AMP IVP ONE (14:00)
[2018-10-26] MEDS ORDERED: HYDROcodone/APAP 5 MG/325 MG (LORTAB) TAB PO PRN (14:00)
[2018-10-26] MEDS ORDERED: morphine INJ 10 MG/ML 1ML (SYR OR VIAL) IVP PRN ×2 (14:00)
[2018-10-26] MEDS ORDERED: ONDANSETRON 4 MG/2 ML (SDV) Z0FRAN IVP PRN (14:00)
--- NOTE | 2018-10-26 18:13 | OPERATIVE REPORT ---
DATE OF SERVICE: 10/26/2018 ATTENDING PRIMARY CARE PHYSICIAN: Dr. Jose Juan Montalvo. PREOPERATIVE DIAGNOSIS: Screening colonoscopy. POSTOPERATIVE DIAGNOSES: Mild chronic stage I external and internal hemorrhoids, mild sigmoid diverticulosis. PROCEDURE: Colonoscopy. SURGEON: Dr. Farias. ANESTHESIA: Conscious sedation. ESTIMATED BLOOD LOSS: Minimal. FINDINGS: Mild chronic stage I external and internal hemorrhoids, mild sigmoid diverticulosis. DISPOSITION: The patient tolerated the procedure well. INDICATIONS: The patient is a 67-year-old male in need of a screening colonoscopy. He has not had a colonoscopy up to this point in his life. He states that he is doing well and does not report any major issues with diarrhea nor constipation as well as no red blood per rectum nor any dark tarry stools. He does not have any first degree relatives with a history of colon cancer; however, does have remote history with his maternal grandfather having the disease. DESCRIPTION OF PROCEDURE: The patient was brought to the endoscopy suite, laid in the left lateral decubitus position. After adequate IV pain and sedative medications and conscious sedation anesthesia, a digital rectal examination was performed. Mild chronic stage I external and internal hemorrhoids were identified, which were not actively edematous nor inflamed and no bleeding. Normal sphincter tone was felt and there were no palpable masses. Prostate gland was palpable and appeared normal with no abnormal nodules. The endoscope was then intubated to the anus and rectum gently insufflated. The endoscope was then advanced to the valves of Marks and rectum with no polyps or any neoplasms identified. We then proceeded through the sigmoid colon where a mild sigmoid diverticulosis identified. There were no mucosal inflammatory changes to indicate any active diverticulitis. The endoscope was then advanced to the remainder of the descending, transverse and ascending colon to the cecum. These segments were normal. There were no polyps or any neoplasms identified throughout the colon or rectum. The endoscope was then slowly withdrawn while taking a second look and suctioning of residual air with no additional findings. The patient tolerated the procedure well. We will recommend medical management with a high fiber diet with at least 30 grams of fiber daily as well as significant amounts of water to promote soft stools on a daily basis. He does not need another colonoscopy for another 10 years. Job ID: [id number] DocumentID: [id number] Dictated Date: 10/26/2018 13:21:18 Economic Research Assistant Date: 10/26/2018 18:12:09 Dictated By: MELINA FARIAS MD
== END 2018-10-26 14:41 | disposition home or self-care (01) ==
LOC: ENDO 11:36
PROVIDERS: ATTEND Surgery
DX: Z12.11 Encounter for screening for malignant neoplasm of colon (principal); K57.30 Diverticulosis of large intestine without perforation or abscess without bleeding; K64.0 First degree hemorrhoids; N18.3 Chronic kidney disease, stage 3 (moderate); Z85.46 Personal history of malignant neoplasm of prostate; Z79.82 Long term (current) use of aspirin; Z88.0 Allergy status to penicillin